=== PATIENT | female | born 1960 | race Two or more races ===

== ENCOUNTER 2017-07-11 04:57 | Day surgery (SDC) | payer OTHER | END 2017-07-11 16:05 | disposition home or self-care (01) | LOC: CIR.AMB 04:57 | DX: K80.10 Calculus of gallbladder with chronic cholecystitis without obstruction (principal) ==

== ENCOUNTER 2017-08-31 05:32 | Day surgery (SDC) | payer OTHER | END 2017-08-31 10:15 | disposition home or self-care (01) | LOC: AMB-ENDOS 05:32 | DX: K57.30 Diverticulosis of large intestine without perforation or abscess without bleeding (principal); K64.2 Third degree hemorrhoids ==

== ENCOUNTER 2018-06-14 05:43 | Day surgery (SDC) | payer OTHER | END 2018-06-14 09:50 | disposition home or self-care (01) | LOC: AMB-ENDOS 05:43 | DX: K63.5 Polyp of colon (principal); K64.1 Second degree hemorrhoids ==

== ENCOUNTER 2020-02-20 05:35 | Day surgery (SDC) | payer OTHER | END 2020-02-20 10:20 | disposition home or self-care (01) | LOC: AMB-ENDOS 05:35 | PROVIDERS: ATTEND Colon & Rectal Surgery | DX: D12.3 Benign neoplasm of transverse colon (principal); Z20.828 Contact with and (suspected) exposure to other viral communicable diseases ==

== ENCOUNTER 2020-02-24 09:33 | Outpatient (CLI) | payer OTHER | END 2020-02-24 09:43 | disposition home or self-care (01) | LOC: RAD 09:33 | PROVIDERS: ATTEND Urology | DX: N20.0 Calculus of kidney (principal) ==

== ENCOUNTER 2020-04-06 13:48 | Outpatient (CLI) | payer OTHER | END 2020-04-06 14:07 | disposition home or self-care (01) | LOC: NUCLEAR 13:48 | PROVIDERS: ATTEND Obstetrics & Gynecology | DX: M81.0 Age-related osteoporosis without current pathological fracture (principal) ==

== ENCOUNTER 2021-07-02 12:24 | Emergency (ER) | payer OTHER ==
[~2021-07-02] VITALS: Ht 160 cm; Wt 68.9 kg
[2021-07-02] MEDS ORDERED: COZAAR25 MG (12:39)
[2021-07-02] MEDS ORDERED: ADULT LOW DOSE81 M1 (12:40)
[2021-07-02] MEDS ORDERED: CRESTOR20 MG (12:40)
== END 2021-07-03 16:45 | disposition home or self-care (01) ==
LOC: ER 12:24
DX: R10.9 Unspecified abdominal pain (principal); N20.0 Calculus of kidney

== ENCOUNTER 2021-09-08 09:51 | Outpatient (CLI) | payer OTHER ==
[~2021-09-08 09:51] MED LIST: ADULT LOW DOSE81 M1; COZAAR25 MG; CRESTOR20 MG
== END 2021-09-08 10:15 | disposition home or self-care (01) ==
LOC: RAD 09:51
PROVIDERS: ATTEND Internal Medicine Hematology & Oncology
DX: N20.1 Calculus of ureter (principal); N20.0 Calculus of kidney; C20 Malignant neoplasm of rectum; N60.19 Diffuse cystic mastopathy of unspecified breast

== ENCOUNTER 2021-09-29 09:58 | Outpatient (CLI) | payer OTHER | END 2021-09-29 10:09 | disposition home or self-care (01) | LOC: TOM 09:58 | PROVIDERS: ATTEND Internal Medicine Hematology & Oncology | DX: C20 Malignant neoplasm of rectum (principal) ==

== ENCOUNTER 2022-06-29 09:55 | Outpatient (CLI) | payer OTHER | END 2022-06-29 10:10 | disposition home or self-care (01) | LOC: TOM 09:55 | PROVIDERS: ATTEND Internal Medicine Hematology & Oncology | DX: R10.9 Unspecified abdominal pain (principal) ==